=== PATIENT | female | born 1985 | race Caucasian/White ===

== ENCOUNTER 2017-05-27 22:03 | Emergency (ER) | payer BC, OTHER ==
[2017-05-27 22:11] VITALS: BP 124/78; PULSE 94; TEMP 98.1; BMI 34.3
--- NOTE | 2017-05-27 22:24 | PDOC ---
History of Present Illness - General Chief Complaint: Pain Stated Complaint: INJURY Time Seen by Provider: 05/27/17 22:23 History Source: Patient - History of Present Illness Initial Comments: 05/27/17 23:27 32 year old female with right 3 rd digit injury while catching a soft ball now with hematoma to the fields aspect of finger and swelling. patient also c/o sprain to right ankle x 3 weeks now with increased pain after playing soft ball today. denies pmhx Past History - Past Medical History Allergies/Adverse Reactions: Allergies Allergy/AdvReac Type Severity Reaction Status Date / Time No Known Allergies Allergy Verified 05/27/17 22:11 Home Medications: Ambulatory Orders Ibuprofen [Motrin] 800 mg PO BID #30 tablet 12/30/11 Other medical history: denies - Psycho/Social/Smoking Cessation Hx Anxiety: No Suicidal Ideation: No Smoking Status: No Smoking History: Current every day smoker Number of Cigarettes Smoked Daily: 20 Information on smoking cessation initiated: No Hx Alcohol Use: Yes Drug/Substance Use Hx: No Substance Use Type: Alcohol Review of Systems - Review of Systems Able to Perform ROS?: Yes Is the patient limited Faroese proficient: No Constitutional: No: Symptoms Reported, See HPI, Chills, Diaphoresis, Fever, Loss of Appetite, Malaise, Night Sweats, Weakness, Weight Stable, Unintentional Wgt. Loss, Unexplained wgt Loss, Other Musculoskeletal: Yes: Other (right ankle pain and right finger injury) *Physical Exam - Vital Signs Last Vital Signs Temp Pulse Resp BP Pulse Ox 98.1 F 94 H 18 124/78 100 05/27/17 22:04 05/27/17 22:04 05/27/17 22:04 05/27/17 22:04 05/27/17 22:04 - Physical Exam General Appearance: Yes: Appropriately Dressed Extremity: positive: Other (right third digit ) Medical Decision Making - Medical Decision Making 05/27/17 23:35 A: ankle injury finger sprain P xray: neg fracture official read pending outpatient ortho follow up *DC/Admit/Observation/Transfer Diagnosis at time of Disposition: Sprain of finger, right Qualifiers: Encounter type: initial encounter Finger: middle finger Sprain of finger site: interphalangeal joint Qualified Code(s): S63.632A - Sprain of interphalangeal joint of right middle finger, initial encounter Right ankle injury Qualifiers: Encounter type: initial encounter Qualified Code(s): S99.911A - Unspecified injury of right ankle, initial encounter - Referrals Referrals: Amilcar Benavides MD [Staff Physician] - Dean Valentine MD [Staff Physician] - - Patient Instructions Printed Discharge Instructions: DI for Finger Sprain Additional Instructions: ICE finger . keep in splint follow up with kosher sealer or ortho for ankle injury. follow up with ortho for finger injury. - Post Discharge Activity Work/School Note: Back to Work
== END 2017-05-27 23:47 | disposition home or self-care (01) ==
LOC: JER 22:03
PROC: 2W3SX1Z Immobilization of Right Foot using Splint (ICD-10-PCS; principal; 2017-05-27)
DX: S63.632A Sprain of interphalangeal joint of right middle finger, initial encounter (principal); S99.911A Unspecified injury of right ankle, initial encounter; W22.8XXA Striking against or struck by other objects, initial encounter; Y93.66 Activity, soccer; Y92.322 Soccer field as the place of occurrence of the external cause; F17.210 Nicotine dependence, cigarettes, uncomplicated
CPT/HCPCS: 73130-TC-RT; 73610-TC-RT; 73630-TC-RT; 99281-25

== ENCOUNTER 2017-07-01 18:21 | Emergency (ER) | payer BC, OTHER ==
[2017-07-01 18:25] VITALS: BP 125/73; PULSE 89; TEMP 98.1; BMI 34.3
--- NOTE | 2017-07-01 19:33 | PDOC ---
History of Present Illness - General History Source: Patient Exam Limitations: No Limitations - History of Present Illness Initial Comments: 07/01/17 19:46 The patient is a 32 year old female A1, with a significant past medical history of, who presents to the emergency department with menstrual bleeding for the past week and abdominal cramping. She reports that her menstrual period arrived 1 week early and has been heavy throughout. She notes that her periods usually last a week but not to the intensity of the current flow. She states that she was been going through 4-5 pads daily. She describes her abdominal cramping as mild, without radiation or modifying factors. The patient denies chest pain, shortness of breath, headache and dizziness. Denies fever, chills, nausea, vomit, diarrhea and constipation. Denies dysuria, frequency, urgency. Allergies: None Past surgical history: None reported Social history: Social alcohol drinker, marijuana user. <Vladimir Jay - Last Filed: 07/01/17 19:45> <Minna Pete - Last Filed: 07/01/17 20:35> - General Chief Complaint: Vaginal Bleeding Stated Complaint: VAGINAL BLEEDING Time Seen by Provider: 07/01/17 19:33 Past History <Vladimir Jay - Last Filed: 07/01/17 19:45> - Past Medical History Other medical history: PLANTAR FASCIITIS - Psycho/Social/Smoking Cessation Hx Anxiety: No Suicidal Ideation: No Smoking Status: No Smoking History: Current every day smoker Number of Cigarettes Smoked Daily: 40 Information on smoking cessation initiated: Yes 'Breaking Loose' booklet given: 07/01/17 Hx Alcohol Use: Yes (SOCIAL) Drug/Substance Use Hx: No Substance Use Type: None <Minna Pete - Last Filed: 07/01/17 20:35> - Past Medical History Allergies/Adverse Reactions: Allergies Allergy/AdvReac Type Severity Reaction Status Date / Time No Known Allergies Allergy Verified 07/01/17 18:25 Home Medications: Ambulatory Orders NK [No Known Home Medication] 07/01/17 Review of Systems - Review of Systems Able to Perform ROS?: Yes Comments:: 07/01/17 19:46 GENERAL/CONSTITUTIONAL: No fever or chills. No weakness. HEAD, EYES, EARS, NOSE AND THROAT: No change in vision. No ear pain or discharge. No sore throat.- CARDIOVASCULAR: No chest pain or shortness of breath RESPIRATORY: No cough, wheezing, or hemoptysis. GASTROINTESTINAL: (+)Abdominal cramping. No nausea, vomiting, diarrhea or constipation. GENITOURINARY: (+) Vaginal bleeding. No dysuria, frequency, or change in urination. MUSCULOSKELETAL: No joint or muscle swelling or pain. No neck or back pain. SKIN: No rash NEUROLOGIC: No headache, vertigo, loss of consciousness, or change in strength/ sensation. ENDOCRINE: No increased thirst. No abnormal weight change HEMATOLOGIC/LYMPHATIC: No anemia, easy bleeding, or history of blood clots. ALLERGIC/IMMUNOLOGIC: No hives or skin allergy. <Vladimir Jay - Last Filed: 07/01/17 19:45> *Physical Exam - Vital Signs Last Vital Signs Temp Pulse Resp BP Pulse Ox 98.1 F 89 20 125/73 98 07/01/17 18:22 07/01/17 18:22 07/01/17 18:22 07/01/17 18:22 07/01/17 18:22 - Physical Exam Comments: 07/01/17 19:46 GENERAL: Awake, alert, and fully oriented, in no acute distress HEAD: No signs of trauma, normocephalic, atraumatic EYES: PERRLA, EOMI, sclera anicteric, conjunctiva clear ENT: Auricles normal inspection, hearing grossly normal, nares patent, oropharynx clear without exudates. Moist mucosa NECK: Normal ROM, supple, no lymphadenopathy, JVD, or masses LUNGS: No distress, speaks full sentences, clear to auscultation bilaterally HEART: Regular rate and rhythm, normal S1 and S2, no murmurs, rubs or gallops, peripheral pulses normal and equal bilaterally. ABDOMEN: Soft, nontender, normoactive bowel sounds. No guarding, no rebound. No masses EXTREMITIES : Normal inspection, Normal range of motion, no edema. No clubbing or cyanosis. NEUROLOGICAL: Cranial nerves II through XII grossly intact. Normal speech, normal gait, no focal sensorimotor deficits SKIN: Warm, Dry, normal turgor, no rashes or lesions noted. <Vladimir Jay - Last Filed: 07/01/17 19:45> - Vital Signs Last Vital Signs Temp Pulse Resp BP Pulse Ox 98.1 F 89 20 125/73 98 07/01/17 18:22 07/01/17 18:22 07/01/17 18:22 07/01/17 18:22 07/01/17 18:22 <Minna Pete - Last Filed: 07/01/17 20:35> ED Treatment Course - LABORATORY CBC & Chemistry Diagram: 07/01/17 20:02 07/01/17 20:02 <Minna Pete - Last Filed: 07/01/17 20:35> Medical Decision Making - Medical Decision Making 07/01/17 20:32 pt has a h/o irregular menstruation and now has experineced heavy vaignal bleeding,concern for pregnany =reveiwing her labs ,she has no anemia and she is NOT imp dysfunctional utereine bleeding plan f/u with her ENERGY SYSTEMS ENGINEER <Minna Pete - Last Filed: 07/01/17 20:35> *DC/Admit/Observation/Transfer - Attestations Scribe Attestion: 07/01/17 19:46 Documentation prepared by Vladimir Jay, acting as medical esthetician for Minna Pete MD <Vladimir Jay - Last Filed: 07/01/17 19:45> <Minna Pete - Last Filed: 07/01/17 20:35> Diagnosis at time of Disposition: Vaginal bleeding - Discharge Dispostion Disposition: HOME Condition at time of disposition: Stable - Referrals Referrals: Adan Martinez MD [Staff Physician] - - Patient Instructions Printed Discharge Instructions: DI for Menorrhagia Additional Instructions: please followup with your touch up painter hand
[2017-07-01 20:03] LABS: BASOPHIL 0.8 % (0-2.0); EOSINOPHIL 1.4 % (0-4.5); MCH 32.5 pg (25.7-33.7); MCHC 35.3 g/dl (32.0-36.0); MEAN PLT VOLUME 8.1 fl (7.5-11.1); NEUTROPHILS 61.3 % (42.8-82.8); PLATELET COUNT 255 K/MM3 (134-434)
[2017-07-01 20:25] LABS: ALBUMIN 3.9 g/dl (3.4-5.0); ANION GAP 7 (8-16); CALCIUM 8.6 mg/dL (8.5-10.1); CO2 23 mmol/L (21-32); CREATININE 0.8 mg/dL (0.55-1.02); GLUCOSE,RANDOM 115 mg/dL (74-106); SGOT/AST 12 U/L (15-37); SGPT/ALT 20 U/L (12-78)
[2017-07-01 20:27] LABS: ALK PHOS 69 U/L (45-117); BILIRUBIN,TOTAL 0.4 mg/dL (0.2-1.0); TOT PROT 6.9 g/dl (6.4-8.2)
== END 2017-07-01 20:48 | disposition home or self-care (01) ==
LOC: JER 18:21
DX: N92.0 Excessive and frequent menstruation with regular cycle (principal)
CPT/HCPCS: 36415; 80053; 84703; 85025; 99283-25

== ENCOUNTER 2019-09-28 05:22 | Emergency (ER) | payer BC, OTHER ==
--- NOTE | 2019-09-28 05:59 | PDOC ---
History of Present Illness - General Stated Complaint: ALLERGIC REACTION Time Seen by Provider: 09/28/19 05:56 - History of Present Illness Initial Comments: 09/28/19 06:14 34 y/o F no significant medical hx presenting today with with erythema and target like lesiion on her right elbow, and a welt on her right abdomen. She noticed this a few hours ago. She does not remember being bitten by an insect or the feel of a stinger. She endorses, pain, itcing and tingling from her elbow to her arm She denies any chest pain, wheezing or shortness of breath. She took benadryl at home with no relief. 09/28/19 06:27 Past History - Past Medical History Allergies/Adverse Reactions: Allergies Allergy/AdvReac Type Severity Reaction Status Date / Time No Known Allergies Allergy Verified 09/28/19 06:02 Home Medications: Ambulatory Orders NK [No Known Home Medication] 07/01/17 CVA: No COPD: No - Reproductive History (#): 1 Para: 0 Cervical CA: No Dysfunctional Uterine Bleeding: No Ectopic : No Endometrial CA: No Polycystic Ovaries: No Therapeutic (s) & number: Yes Tubal Ligation: No - Psycho Social/Smoking Cessation Hx Smoking Status: No Smoking History: Current every day smoker Number of Cigarettes Smoked Daily: 40 'Breaking Loose' booklet given: 07/01/17 Hx Alcohol Use: Yes (SOCIAL) Drug/Substance Use Hx: No Substance Use Type: None, Alcohol, Marijuana *Physical Exam - Physical Exam 09/28/19 06:28 GENERAL: Awake, alert, and fully oriented, in no acute distress HEAD: No signs of trauma, normocephalic, atraumatic EYES: PERRLA, EOMI, sclera anicteric, conjunctiva clear ENT: Auricles normal inspection, hearing grossly normal, nares patent, oropharynx clear without exudates. Moist mucosa NECK: Normal ROM, supple, no lymphadenopathy, JVD, or masses LUNGS: No distress, speaks full sentences, clear to auscultation bilaterally HEART: Regular rate and rhythm, normal S1 and S2, no murmurs, rubs or gallops, peripheral pulses normal and equal bilaterally. ABDOMEN: soft nontender, no guarding or rebound EXTREMITIES : Normal inspection, Normal range of motion, no edema. No clubbing or cyanosis NEUROLOGICAL: Cranial nerves II through XII grossly intact. Normal speech, normal gait, no focal sensorimotor deficits. numbness and tingling down her right arm SKIN: Warm, target looking erythematous lesion around elbow, with what look like 3 different bite sites.blanching erythematous welt on right lower back. removed what could possibly be a stinger from one of the 3 sites. 09/28/19 06:28 09/28/19 06:41 Medical Decision Making - Medical Decision Making 09/28/19 06:30 34y/o F no significant medical hx presenting with erythmatous target lesion on right elbow hymenoptera vs Lyme. meds decadron 10 mg emla cream to affected area doxycline 100mg PO patient took benadryl at home 09/28/19 07:06 given ketoralac 30 mg IM fro pain as well as ice pack signed out to Day team Discharge - Follow up/Referral Referrals: Carlene Dumont MD [Primary Care Provider] - - Patient Discharge Instructions - Post Discharge Activity
[2019-09-28 06:05] VITALS: BMI 32.9
[2019-09-28] MEDS ORDERED: DEXAMETHASONE 4 MG TABLET (FP) PO PRN (06:06)
[2019-09-28] MEDS ORDERED: LIDOCAINE 2.5%/PRILOCAINE 2.5% (5 Gram/TUBE) TP ONE ×2 (06:08→06:09)
[2019-09-28] MEDS ORDERED: DEXAMETHASONE SOD PHOSPHATE 10 MG/1 ML VIAL ONE (06:09)
[2019-09-28] MEDS ORDERED: DOXYCYCLINE HYCLATE 100 MG CAPSULE PO ONE ×2 (06:12→06:14)
--- NOTE | 2019-09-28 06:32 | PDOC ---
Attending Attestation - Resident Resident Name: Sg Mclainjean claudedanielle - ED Attending Attestation I have performed the following: I have examined & evaluated the patient, The case was reviewed & discussed with the resident, I agree w/resident's findings & plan - HPI HPI: 09/28/19 06:27 Pt woke with bug bites/stings on her right tricep; and she has pins and needles going down her right arm. She has local redenss and swelling. She also has a discrete bite on her right flank/back area. Pt took 100mg benadryl at home since 12 midnight. She has continued pain and itching. - Physicial Exam PE: 09/28/19 06:29 Agree with resident exam - Medical Decision Making 09/28/19 06:29 Home with abx. She will be treated with decadron and emla cream. She had benadryl at home. She will be sent home with doxy 100 BID. She can follow wiht her PMD 09/28/19 06:38 Pt will be signed out to the day team and they will follow her and discharge her when her condition has improved.
[2019-09-28] MEDS ORDERED: KETOROLAC TROMETHAMINE 30 MG/1 ML VIAL IM ONE (06:37)
[2019-09-28] MEDS ORDERED: KETOROLAC TROMETHAMINE 30 MG/1 ML VIAL ONE (06:38)
--- NOTE | 2019-09-28 07:01 | PDOC ---
*Physical Exam - Vital Signs Last Vital Signs Temp Pulse Resp BP Pulse Ox 97.8 F 82 20 138/79 100 09/28/19 06:02 09/28/19 06:02 09/28/19 06:02 09/28/19 06:02 09/28/19 06:02 ED Treatment Course - Medications Given in the ED: ED Medications Discontinued Medications Generic Name Dose Route Start Last Admin Trade Name Christopher PRN Reason Stop Dose Admin Doxycycline Hyclate 100 mg 09/28/19 06:12 09/28/19 06:15 Vibramycin - PO 09/28/19 06:13 100 mg ONCE ONE Administration Ketorolac Tromethamine 30 mg 09/28/19 06:37 09/28/19 06:41 Toradol Injection - IM 09/28/19 06:38 30 mg ONCE ONE Administration Lidocaine/Prilocaine 1 applic 09/28/19 06:08 09/28/19 06:13 Emla - TP 09/28/19 06:09 1 applic ONCE ONE Administration Medical Decision Making - Medical Decision Making 09/28/19 06:59 Pt received on sign out from Dr. Mclain. 34F with no significant pmh presenting today with erythematous target lesion on right elbow that started 6 hours ago. Denies bites/stings. Took 4 benadryl at home with no relief. Exam shows large erythematous lesion over right elbow, 3 bite stings, a stinger was pulled out, blanching lesion over right flank. Pt given 10 mg PO decadron, lidocaine cream, ice, 30 mg IM ketorolac, doxycycline 100 mg PO. No respiratory symptoms. 09/28/19 08:47 Pt reassessed. Reports that pain has much improved. Resting comfortably. Plan to d/c home, doxycycline 100 mg for 5 days, f/u PCP. Discharge - Discharge Information Problems reviewed: Yes Clinical Impression/Diagnosis: Allergic reaction Qualifiers: Encounter type: initial encounter Qualified Code(s): T78.40XA - Allergy, unspecified, initial encounter Condition: Stable Disposition: HOME - Admission No - Additional Discharge Information Prescriptions: Doxycycline Hyclate 100 mg PO DAILY #5 tablet MDD 1 tab - Follow up/Referral Referrals: Carlene Dumont MD [Primary Care Provider] - - Patient Discharge Instructions Additional Instructions: Please make a follow up appointment with your PCP (Dr. Dumont). Please take 100 mg of doxycycline for 5 days. If you experience any new, worsening, or concerning symptoms, including spreading redness/itchiness of the affected areas, shortness of breath/ difficulty breathing, fever, chills, or any other concerns, please return to the emergency department. - Post Discharge Activity
[2019-09-28 09:17] VITALS: BP 128/75; PULSE 90; TEMP 97.9
== END 2019-09-28 09:00 | disposition home or self-care (01) ==
LOC: JER 05:22
PROC: 3E0233Z Introduction of Anti-inflammatory into Muscle, Percutaneous Approach (ICD-10-PCS; principal; 2019-09-28)
DX: T78.40XA Allergy, unspecified, initial encounter (principal)
CPT/HCPCS: 99281-25